=== PATIENT | female | born 1945 | race Caucasian/White ===

== ENCOUNTER → 2017-03-19 | Outpatient (CLI) | payer OTHER ==
[~2017-03-19] MED LIST: ATOR-24 PO; CALCTAB5 PO; CLON0.5T3 PO; FRS/40 PO; FSMD/70 PO; INSDGI SC; LISI10TA PO; METO25TA3 PO; MULT-506 PO; NVLGI SC; OMEG10007 PO; OXYC5TAB PO; OXYSR10 PO; PREG1CAP28 PO; VTMD PO; [UNRECOGNIZED DRUG - CODE] PO
== END | disposition home or self-care (01) ==
LOC: C.RDSM 10:10
PROVIDERS: ATTEND Physical Medicine & Rehabilitation
DX: M54.5 Low back pain (principal)

== ENCOUNTER → 2017-05-06 | Day surgery (SDC) | payer OTHER ==
[2017-04-17 15:34] VITALS: Ht 152.4 cm; Wt 86.5 kg
[~2017-05-06] VITALS: Ht 152.4 cm; Wt 86.5 kg
[~2017-05-06] MED LIST changes: +IOPAMIDOL INJ 61% 15 ML VIAL ONE; +LIDOCAINE HCL 1% MPF 5 ML VIAL ONE; -MULT-506 PO; -OXYC5TAB PO; -OXYSR10 PO; +SODIUM CHLORIDE 0.9% INJ 10 ML VIAL ONE
--- NOTE | 2017-05-06 13:24 | History & Physical Bridge - [place] ---
H&P Re-Evaluation Bridge Note: I have examined the patient, reviewed the History & Physical and in the interval since the performance of the History & Physical I have noted the following changes of clinical significance: No changes noted
[2017-05-06 13:57] VITALS: TEMP 36.9
--- NOTE | 2017-05-06 14:01 | Discharge Instructions ---
Discharge Instructions Date of Service May 06, 2017. Visit Reason for Visit: Low Back Pain Discharge Discharge Diagnosis / Problem: low back pain Discharge Goals Goal(s): Decrease discomfort, Improve function Activity Recommendations Activity Limitations: resume your previous activity Anesthesia . Post Anesthesia Instructions: If you have had General Anesthesia or IV Sedation: * Do not drive today. * Resume driving when surgeon permits. * Do not make important decisions or sign legal documents today. * Call surgeon for: 1. Temperature elevations greater than 101 degrees F. 2. Uncontrollable pain. 3. Excessive bleeding. 4. Persistent nausea and vomiting. 5. Medication intolerance (nausea, vomiting or rash). * For nausea and vomiting use only clear liquids such as: tea, soda, bouillon until nausea subsides, then gradually increase diet as tolerated. * If you have any concerns or questions, call your surgeon's office. If physician is unavailable and it is an emergency, call 911 or go to the nearest emergency room. . Diet Recommendations Recommended Home Diet: resume previous diet Procedures Procedures Performed: LUMBAR EPIDURAL STEROID INJECTION, CHANGED TO CAUDAL APPROACH. Pending Studies Studies pending at discharge: no Medical Emergencies . Who to Call and When: Medical Emergencies: If at any time you feel your situation is an emergency, please call 911 immediately. . Non-Emergent Contact Non-Emergency issues call your: Specialist . . "Provider Documentation" section prepared by Tab Hutchinson. .
[2017-05-06 14:10] VITALS: BP 138/74; PULSE 75; O2SAT 96
--- NOTE | 2017-05-06 21:12 | OPERATIVE REPORT ---
DATE OF OPERATION: 05/06/2017 PREOPERATIVE DIAGNOSIS: Lumbar spinal stenosis with neurogenic claudication. POSTOPERATIVE DIAGNOSIS: Same. PROCEDURE: Caudal epidural steroid injection under fluoroscopic guidance. INDICATIONS: The patient is a 71-year-old white female who presents to the office with classic symptoms of neurogenic claudication. She presents today for an epidural injection to provide her with relief, as conservative measures have not helped and she is limited in her ability to ambulate to distances of only 30 to 50 feet before needing to stop to rest. PHYSICAL EXAMINATION: Pleasant female seated comfortably. She had limitations with extension to 20 degrees. Sciatic notches were mildly tender. She had normal lower extremity strength. Sensation was intact with negative seated straight leg raises. CONSENT: Verbal and written consent was reviewed with patient. Risks include but are not limited to epidural abscess, epidural hematoma, allergic reaction, dural puncture were discussed. She wishes to proceed. DESCRIPTION OF PROCEDURE: The patient was taken back to special procedures room of [facility] where she was maintained in prone position. Backside was cleansed with Betadine x3 and a dry sterile dressing was applied. First was attempted to go into the intralaminar space at L5-S1, but it was very narrowed and kept hitting bone. Decision was made then to enter via caudal approach, so 3 mL of lidocaine 1% was used to anesthetize the caudal area and a 25 gauge 3.5-inch needle was placed at a very acute angle and just entered at the tip entering the sacral canal. She then underwent injection after negative aspiration of 40 mg of Depo-Medrol and 4 mL of preservative free sodium chloride. Injection was well tolerated. DISPOSITION: 1. The patient is taken out into the discharge recovery area where she will be discharged home once discharge criteria have been met. 2. Follow up in the [facility] office in 2-4 weeks. I attest to the content of the Intraoperative Record and any orders documented therein. Any exception s are noted below.
== END | disposition home or self-care (01) ==
LOC: X.SURG 12:13
PROVIDERS: ATTEND Physical Medicine & Rehabilitation
DX: M48.06 Spinal stenosis, lumbar region (principal); E11.9 Type 2 diabetes mellitus without complications; N28.9 Disorder of kidney and ureter, unspecified; Z79.4 Long term (current) use of insulin; Z79.899 Other long term (current) drug therapy

== ENCOUNTER → 2017-07-08 | Day surgery (SDC) | payer OTHER ==
[2017-06-11 12:34] VITALS: Ht 152.4 cm; Wt 86.4 kg
[~2017-07-08] VITALS: Ht 152.4 cm; Wt 86.4 kg
--- NOTE | 2017-07-08 14:13 | Discharge Instructions ---
Discharge Instructions Date of Service Jul 08, 2017. Visit Reason for Visit: Lumbar Spinal Stenosis Discharge Discharge Diagnosis / Problem: leg pain Discharge Goals Goal(s): Decrease discomfort, Improve function Medications Stopped Medications Name(s): Fish oil and baby aspirin. Stopped taking 4 days ago. Activity Recommendations Activity Limitations: resume your previous activity Anesthesia . Post Anesthesia Instructions: If you have had General Anesthesia or IV Sedation: * Do not drive today. * Resume driving when surgeon permits. * Do not make important decisions or sign legal documents today. * Call surgeon for: 1. Temperature elevations greater than 101 degrees F. 2. Uncontrollable pain. 3. Excessive bleeding. 4. Persistent nausea and vomiting. 5. Medication intolerance (nausea, vomiting or rash). * For nausea and vomiting use only clear liquids such as: tea, soda, bouillon until nausea subsides, then gradually increase diet as tolerated. * If you have any concerns or questions, call your surgeon's office. If physician is unavailable and it is an emergency, call 911 or go to the nearest emergency room. . Diet Recommendations Recommended Home Diet: resume previous diet Procedures Procedures Performed: LUMBAR EPIDURAL STEROID INJECTION Pending Studies Studies pending at discharge: no Medical Emergencies . Who to Call and When: Medical Emergencies: If at any time you feel your situation is an emergency, please call 911 immediately. . Non-Emergent Contact Non-Emergency issues call your: Specialist . . "Provider Documentation" section prepared by Tab Hutchinson. .
[2017-07-08 14:22] VITALS: BP 119/72; PULSE 65; TEMP 36.7; O2SAT 95
--- NOTE | 2017-07-08 15:15 | OPERATIVE REPORT ---
DATE OF OPERATION: 07/08/2017 PREOPERATIVE DIAGNOSIS: Lumbar spinal stenosis with bilateral lower extremity radiculopathies. POSTOPERATIVE DIAGNOSES: Same. PROCEDURE: Left paramedian L5-S1 intralaminar epidural steroid injection under fluoroscopic guidance. INDICATIONS: The patient is a 71-year-old white female who underwent a caudal epidural injection with about 20% relief overall in her pain. She is still describing distal parts below the knee that are radicular in nature, presents today for an injection to try to provide her with relief with a second epidural steroid injection. PHYSICAL EXAMINATION: GENERAL: Pleasant female seated comfortably, in no apparent distress. MUSCULOSKELETAL: Lumbar paraspinal muscles were palpated and noted be nontender. She had normal motor and sensory examination of her lower extremities with negative seated straight leg raises. CONSENT: Verbal and written consent was obtained from the patient. Risks and benefits were reviewed. Risks include but are not limited to epidural abscess, epidural hematoma, allergic reaction, dural puncture. The patient wishes to proceed. PROCEDURE: The patient was taken back to the special procedures room of the [facility]. She was maintained in a prone position. Backside was cleansed with Betadine x3 and a dry sterile dressing was applied. Fluoroscope was used to identify the L5-S1 intralaminar space. Overlying skin on the left side was anesthetized with 4 mL of lidocaine 1% with a 25 gauge 1.5-inch needle. A total of 4 mL of lidocaine 1% was utilized to numb the skin and the tissue track. She then underwent placement of a 22 gauge 3-1/2 inch Tuohy needle and it was advanced to a depth of just under 8 cm and loss of resistance was noted. She then underwent injection after negative aspiration of Isovue 300 contrast 0.5 mL which demonstrated epidural uptake. She then underwent injection after negative aspiration of 40 mg of Depo-Medrol and 4 mL of preservative free sodium chloride and reproduced a familiar transient radicular sensation down the left leg. DISPOSITION: 1. The patient is taken out into the discharge recovery area where she will be discharged home once discharge criteria have been met. 2. Follow up in the [facility] office in 2-4 weeks. I attest to the content of the Intraoperative Record and any orders documented therein. Any exception s are noted below.
== END | disposition home or self-care (01) ==
LOC: X.SURG 13:06
PROVIDERS: ATTEND Physical Medicine & Rehabilitation
DX: M48.07 Spinal stenosis, lumbosacral region (principal)